=== PATIENT | male | born 1950 | race Caucasian/White ===

== ENCOUNTER 2023-10-05 08:10 | Day surgery (SDC) | payer BC, SELFPAY ==
[2023-09-21 07:46] VITALS: BMI 48.7
[2023-09-21 08:25] LABS: % Basophils 0.7 % (0-2); % Eosinophils 2.8 % (0-6); % Immature Granulocytes 0.3 % (0-0.5); % Lymphocytes 20.8 % (20.5-51.1); % Monocytes 7.6 % (1.7-9.3); % Neutrophils 67.8 % (42.2-75.2); Absolute Basophils 0.1 10^3/uL (0-0.2); Absolute Eosinophils 0.2 10^3/uL (0-0.7); Absolute Lymphocytes 1.5 10^3/uL (1.2-3.4); Absolute Monocytes 0.5 10^3/uL (0.1-0.6); Absolute Neutrophils 4.9 10^3/uL (1.4-6.5); Hematocrit 42.3 % (39.0-52.0); Mean Corp Hgb Conc. 33.1 g/dL (33.0-37.0); Mean Corpuscular Hgb 30.2 pg (27.0-31.0); Mean Corpuscular Volume 91.2 fL (80.0-94.0); Mean Platelet Volume 9.5 fL (7.4-10.4); Nucleated Red Blood Cells % 0 % (-); Platelet Count 218 10^3/uL (130-400); Red Blood Cell Count 4.64 10^6/uL (4.70-6.10); Red Cell Dist. Width 12.6 % (11.5-14.5); White Blood Cell Count 7.2 10^3/uL (4.8-10.8)
[2023-09-21 08:32] LABS: INR 1.23; PT 15.3 Sec (11.4-14.6)
[2023-09-21 08:44] LABS: ALT (SGPT) 32 U/L (0-50); AST (SGOT) 25 U/L (17-59); Albumin 3.9 g/dl (3.5-5.0); Alkaline Phosphatase 84 U/L (38-126); Blood Urea Nitrogen 19 mg/dl (9-20); Carbon Dioxide 27 mmol/L (22-30); Chloride 107 mmol/L (98-107); Estimated Creatinine Clearance > 125 ml/min; Glucose 97 mg/dl (70-99); Magnesium 2.4 mg/dl (1.6-2.3); Potassium 4.4 mmol/L (3.5-5.1); Sodium 140 mmol/L (135-145); Total Bilirubin 0.7 mg/dl (0.2-1.3); Total Protein 6.6 g/dl (6.3-8.2); eGFR > 60.00
[2023-10-05] VITALS (25 sets, daily range): BP systolic 85–148; BP diastolic 21–94; BMI 47.2
--- NOTE | 2023-10-05 07:58 | ITS.CL.ABL ---
Sodium Methylate Operator - Ablation
Ablation
Procedure Report:
ELECTROPHYSIOLOGIC STUDY AND POSSIBLE ABLATION
DATE: October 05, 2023
Primary Care Provider: Dr Krzysztof Gonzalez
Flight Paramedic: Fransisco Gloria M.D.
INDICATION:
Symptomatic Atrial Fibrillation.
Persistent
HISTORY: See H and P.
Symptomatic AF, poorly controlled with attempted medical therapy
Symptomatic persistent atrial fibrillation with recurrent episodes despite antiarrhythmic drug therapy with sotalol and multiple cardioversions. Episodes of atrial fibrillation have been associated with decompensated heart failure with preserved
ejection fraction.
A major comorbidity of his is morbid obesity with body mass index of 46.
HAS-BLED: 1
Age
CHADSVASc: 3
HFpEF
HTN
Age
PRESENTING RHYTHM: AF
ANTIARRHYTHMIC DRUG: Sotalol which was discontinued 3 days ago
ANTICOAGULATION: Eliquis 5 mg twice daily
'TIME-OUT': called and confirmed.
SEDATION/ANESTHESIA: provided via the anesthesia department using general anesthesia.
INTRAVENOUS/ARTERIAL ACCESS:
Right femoral venous - 8Fr ( up-sized for Arctic Front Flex Sheath - 15 Fr)
Left femoral venous - 7 Fr, 9 Fr,
PROCEDURE:
Ultrasound Guidance performed by mi was utilized for femoral venous Vascular Access b/l.
A decapolar CS catheter was placed within the CS for mapping and pacing.
The intracardiac ultrasound catheter was positioned in the RA. No YONATAN clot was seen and the LA/PV anatomy was defined. ICE was also used to identify the FO/IAS for targeting of transseptal puncture, assist in identification of the pulmonary vein
ostia, monitoring for PV ostial balloon occlusion using Doppler flow, and to monitor for mechanical injury.
Heparin bolus was administered prior to the transseptal puncture. Transeptal puncture was completed while monitoring intracardiac ultrasound, fluoroscopy and tip pressure. Left atrial catheter position was confirmed by pressure monitoring (RA mean
pressure 3 mm Hg and LA mean pressure 6 mm Hg), as well as fluoroscopy. The sheath was advanced over the dilator and positioned in the left atrium. Heparin was infused to target ACT at 300 -400 seconds throughout the case.
The multi-pole ring mapping catheter was positioned through the sheath into the LA and then the PV ostia were mapped. The 3-D electroanatomical map was created using [employer]. A 3-D reconstructed CT image was compared to the 3-D map to assist in
anatomic interpretation, mapping and ablation. Cryothermal energy was utilized for PV isolation to electrically isolate each PV ostia using the 28 mm Arctic Front balloon. All PVPs were eliminated at each vein demonstrating entrance block.
LSPV LIPV RSPV RIPV
Freeze 1 TI (sec): 17 NA NA NA
TT0 (sec): 11 13 12 10
Baldo temp: - 52 - 62 - 60 - 55
After ostial isolation atrial fibrillation persisted and mapping demonstrated lack of wide area circumferential ablation therefore additional ablation lesions at the left inferior pulmonary vein and right inferior pulmonary vein as well as right
superior pulmonary vein were required to result in wide area circumferential ablation around the pulmonary vein sets.
An esophageal temperature probe was positioned at the level of the mid LA to delineate the course of the esophagus as well as monitor for any significant temperature changes during ablation. The temperature probe was repositioned to best correlate
to the level of ablation delivery. Baldo esophageal temperature is [ ] �C and occurred during cryo-balloon application at the [ ] .
The right phrenic nerve was continuously paced above the level of the R PVs via the SVC decapolar catheter during all right-sided cryo-application. Diaphragmatic CMAP was continuously monitored.
At no point was there any reduction in or loss of diaphragmatic contraction
Once ablation resulted in wide area circumferential entrance block around the pulmonary vein sets, cardioversion was performed. Pacing from the multi-pole ring catheter (Achieve) in SR around the circumference of the ostia was performed at 10 ma
and 2.0 msec output to assess for exit block. Full isolation (entrance and exit) was achieved. Pacing demonstrated exit block and a wide area circumferential fashion around each pulmonary vein set.
I.C.E. :
Pre-Ablation Post-Ablation
LVEF: 55 % 55 %
WMA: none none
Pericardial effusion: none none
Fluoroscopic exposure : 11 minutes, 60 mGy
COMPLICATIONS:
None
SUMMARY:
- Mapping and ablation to isolate the PVs
- Additional AF ablation set after PVI.
- 3-D Electroanatomical Mapping
- Intracardiac Ultrasound
- Ultrasound Guidance for Vascular Access.
Post ablation, I discussed today's findings and results with the patient's , Echo.
RECOMMENDATIONS:
- Observe in monitored bed.
- Maintain oral anticoagulation.
- Continue sotalol at current dose and there may be consideration for stopping antiarrhythmic drug at the 3-6 month ian post procedure if he has been maintaining sinus rhythm.
- Office visit with me in 3 months.
Copy to:
Dr Krzysztof Gonzalez
[2023-10-05 12:05] LABS: ACT-LR - POC 318 Seconds (116-155)
[2023-10-05 12:24] LABS: ACT-LR - POC 345 Seconds (116-155)
[2023-10-05 13:53] LABS: ACT-LR - POC 126 Seconds (116-155)
--- NOTE | 2023-10-05 17:21 | W.PN.UPDATE ---
Update Note
Progress Note Update
Pt seen post PVI. Bilat groin sites without ht/bleeding. Left arterial line also d/c post procedure, site stable, no ht/bleeding. OOB to chair. Post EKG NSR 60s, no acute changes. Resume eliquis tonight, and resume sotalol also. Followup with
[facility] arranged. Home today if groin sites/tele remain stable.
--- NOTE | 2023-10-05 18:09 | PTCARENOTE ---
Dr Gloria at pt bedside speaking to pt and pt's .
== END 2023-10-05 15:30 | disposition home or self-care (01) ==
LOC: CATH 08:10
PROVIDERS: ATTENDING PHYSICIAN Internal Medicine Cardiovascular Disease; FAMILY PHYSICIAN Internal Medicine
DX: I48.0 Paroxysmal atrial fibrillation (principal); I11.0 Hypertensive heart disease with heart failure; Z68.42 Body mass index [BMI] 45.0-49.9, adult; E66.01 Morbid (severe) obesity due to excess calories; R94.31 Abnormal electrocardiogram [ECG] [EKG]; I50.32 Chronic diastolic (congestive) heart failure; I89.0 Lymphedema, not elsewhere classified; I83.10 Varicose veins of unspecified lower extremity with inflammation; Z85.46 Personal history of malignant neoplasm of prostate; Z92.3 Personal history of irradiation; Z87.891 Personal history of nicotine dependence; F90.9 Attention-deficit hyperactivity disorder, unspecified type; Z79.01 Long term (current) use of anticoagulants
CPT/HCPCS: C1766; C1893; C1894; C1769; C1730; C1759; 36415; 75572; 80053; 83735; 85025; 85347; 85610; 86850; 86900; 86901; 93005; 93656; 93657; Q9967